=== PATIENT | male | born 1975 | race Caucasian/White ===

== ENCOUNTER 2018-06-27 15:03 | Emergency (ER) | payer MEDICAID, OTHER ==
--- NOTE | 2018-06-27 16:18 | EDPHY ---
General Time Seen by Provider: 06/27/18 16:04 Narrative: CHIEF COMPLAINT: Left thumb pain HISTORY OF PRESENT ILLNESS: Patient presents with complaints of left thumb pain. This started 2 days ago. [id number] 1st. Now severe. Located at the tip of the left thumb by the fingernail. He attempted to trim the fingernail to help. Severe pain when using the thumb. Improved at rest. Radiates into the hand. No fever. No redness or warmth. No drainage. No other associated complaints or modifying factors DOMINANT EXTREMITY: Right-hand dominant ESTABLISHED ORTHOPEDIST: None REVIEW OF SYSTEMS: Ten systems reviewed and are negative unless otherwise noted in the HPI PAST MEDICAL HISTORY: Uncomplicated PAST SURGICAL HISTORY: No surgical history SOCIAL HISTORY: Nonsmoker. No drug or alcohol use. FAMILY HISTORY: Noncontributory. EXAMINATION: General Appearance: Alert, no distress Cardiovascular: Symmetric radial pulses. Good signs of perfusion the left hand. Neurological: A&O, 2 point sensory symmetric on the thumbs, metal base blocker and interossei strength symmetric Skin: Warm and dry. There is a small, 1 cm area of suspected paronychia versus felon on the left thumb, on the radial side of the thumb nail. There is no involvement of the actual nail bed. No surrounding cellulitis or lymphangitis. Extremities: Tenderness of the left thumb at the site of the abscess. Range of motion of the hand and fingers symmetric. No evidence of compartment syndrome Psychiatric: Mood and affect normal DIFFERENTIAL DIAGNOSES: Including but not limited to felon, paronychia, abscess, fracture MDM: 4:10 p.m. Left thumb paronychia versus ingrown nail. There is no evidence of tenosynovitis, abscess, DVT or cellulitis. I have administered digital block. I will proceed with incision, drainage and excision of the nail. 4:40 p.m. Abscess on the left thumb consistent with paronychia versus felon. Tolerated well with digital block. No packing. Copiously irrigated. Dressing applied to be placed on antibiotics for empiric coverage. We discussed wound care. We discussed ED precautions. We discussed completion of antibiotic with short course of pain medication ongoing anti-inflammatories. PROCEDURE: Digital Block Indication: Thumb paronychia Consent: Verbal Location: Left thumb Anesthesia: Lidocaine 1% plain, 0.25% Marcaine plain, 5mL Description: Base of the finger was prepped. The above was infused without difficulty in a ring block fashion. Tolerated well. Good anesthesia. Complications: None PROCEDURE: Incision and Drainage Consent: Verbal Location: Left thumb Length: 1 cm Complexity: Simple Anesthesia: Digital block Procedure description: After time-out and good anesthesia, the left thumb was prepped in common sterile fashion with chlorhexidine. Using sterile technique, used a 11. Blade to make a small puncture in the area of fluctuance. I was able to express several mL of purulent fluid. Minimal blood loss. Tolerated well. Expressed: 2-3 mL of purulence fluid Wound care: Daily wound care Follow-up: Emergency department as needed SUPERVISION: This patient was independently evaluated without direct involvement of or examination by the attending physician. - History Smoking Status: Current every day smoker - Objective Vital Signs: Initial Vital Signs Temperature (C) 98.8 F 06/27/18 15:03 Heart Rate 102 H 06/27/18 15:03 Respiratory Rate 16 06/27/18 15:03 Blood Pressure 107/85 H 06/27/18 15:03 O2 Sat (%) 97 06/27/18 15:03 O2 Delivery Mode Room Air Allergies/Adverse Reactions: No Known Allergies Allergy (Verified 06/04/18 08:28) Home Medications: Medication Instructions Recorded Sulfamethox/Tmp 800/160 mg 1 tab PO BID 10 Days tab 06/27/18 [Bactrim Ds] oxyCODONE HCL/ACETAMINOPHEN 1 each PO Q4-6PRN PRN #7 tablet 06/27/18 [Percocet 5-325 mg Tablet] Medications Given: Discontinued Medications Diphtheria/Tetanus/Acell Pertussis (Boostrix) 0.5 ml IM .ONCE ONE Stop: 06/27/18 16:37 Last Admin: 06/27/18 16:41 Dose: 0.5 ml Departure - Departure Disposition: Home, Routine, Self-Care Clinical Impression: Felon of finger of left hand Condition: Good Instructions: Paronychia (ED) Additional Instructions: 1. Daily wound care as discussed. You may leave the current dressing in place for up to 48 hr 2. Antibiotics as prescribed to completion 3. Follow up with hand surgeon for definitive care as needed 4. ED precautions for worsening pain, numbness, tingling, redness of the hand or forearm, fever, difficulty bending or straightening the thumb Referrals: Sukumar Owens MD [Medical Doctor] - As per Instructions Prescriptions: oxyCODONE HCL/ACETAMINOPHEN [Percocet 5-325 mg Tablet] 1 each PO Q4-6PRN PRN #7 tablet PRN Reason: Pain, Breakthrough Sulfamethox/Tmp 800/160 mg [Bactrim Ds] 1 tab PO BID 10 Days tab
[2018-06-27] MEDS ORDERED: TDAP ADULT 0.5 ML INJ (BOOSTRIX) IM ONE (16:36)
[2018-06-27 16:53] VITALS: BP 111/67
== END 2018-06-27 16:53 | disposition home or self-care (01) ==
PROC: 0H9GXZZ Drainage of Left Hand Skin, External Approach (ICD-10-PCS; principal; 2018-06-27)
DX: L03.012 Cellulitis of left finger (principal); Z23 Encounter for immunization

== ENCOUNTER 2019-01-05 08:48 | Emergency (ER) | payer MEDICAID ==
[2019-01-05] MEDS ORDERED: NS 1,000 ML IV ONE (09:11)
--- NOTE | 2019-01-05 09:14 | EDPHY ---
General Time Seen by Provider: 01/05/19 09:01 Narrative: CLINICAL IMPRESSION: Nausea, vomiting, diarrhea, acute gastroenteritis ASSESSMENT/PLAN: 43-year-old male presents to the emergency department with nausea, vomiting, diarrhea since last night. No reports of hematemesis, bloody stools, focal abdominal pain, fever or chills. Abdomen is soft without peritoneal findings. Labs reassuring without significant electrolyte imbalance, renal insufficiency, signs of severe dehydration, metabolic disturbance or leukocytosis. Patient received 2 L IV fluid and antiemetics. He was able to tolerate oral fluids well. He continued to have some episodes of diarrhea. We discussed oral rehydration and bland diet at home. PCP follow-up recommended, warning signs return to ED sooner outlined in discharge. DIFFERENTIAL DX: Abdominal pain includes but not limited to acute appendicitis, diverticulitis, cholecystitis, pancreatitis, SBO, gastroenteritis, constipation ED PROCEDURES: See lab and/or imaging results below ED COURSE: 9:10 a.m.: Patient seen assessed by myself. Vital signs stable, afebrile. No signs of severe dehydration. Abdomen soft without focal peritoneal findings. Plan for IV, basic labs, 2 L fluid bolus and p. O. Challenge. Suspect norovirus or similar viral gastroenteritis. CHIEF COMPLAINT: Nausea, vomiting, diarrhea HPI: 43-year-old otherwise healthy male presents to the emergency department with complaints of nausea, vomiting, and diarrhea since late last evening. Patient attempted to go to work today but was feeling too weak and lethargic. He reports generalized abdominal cramping from vomiting but has no localized pain. No prior abdominal wall surgery. Prior history of kidney stones but no reported flank pain, dysuria or visible hematuria. No bloody stools. He does not drink alcohol regularly. No recent travel or antibiotics or new medications. PAST MEDICAL HISTORY: None reported See triage summary and nurse notes for addition applicable history Pertinent Past Surgical History: Past Ureteral stent for kidney stone Family History: Noncontributory Social History: Otherwise healthy, daily smoker REVIEW OF SYSTEMS: A full 10 point review of systems was negative except for those mentioned in HPI. PHYSICAL EXAM: General Appearance: Alert, oriented, appropriate, cooperative, NAD, well hydrated, non-toxic appearing, VSS, hypertensive, no hypoxia. HEENT: TMs are clear bilaterally no perforation or FB, no injection, no evidence of serous or mucopurulent otitis. Moist mucous membranes, Oropharynx clear is no erythema or exudates, no tonsillar hypertrophy or asymmetry. Dentition without abnormality. Neck: Supple, nontender, no lymphadenopathy, no midline pain, FROM, no meningismus. Respiratory: There are no retractions, lungs are clear to auscultation. Cardiac: Regular rate and rhythm, no murmurs or gallops. Gastrointestinal: Abdomen is soft, generalized mild discomfort, hyperactive bowel sounds normal, no masses/hernia, no rigidity, guarding or focal peritoneal findings. Skin: Warm, dry, no rashes, no nodules on palpation. MEDICAL DECISION MAKING: Patient was seen independently. Secondary supervising physician at time of evaluation was: Dr. Davidson . Diagnosis: Nausea vomiting and diarrhea. New, requires workup Summary: See Assessment and Plan for summary of ED visit Clinical lab tests: ordered / reviewed. Patient Progress: Improved, stable for discharge. - History Smoking Status: Heavy smoker - Objective Vital Signs: Initial Vital Signs Temperature (C) 37.1 C 01/05/19 08:53 Heart Rate 87 01/05/19 08:53 Respiratory Rate 18 01/05/19 08:53 Blood Pressure 142/92 H 01/05/19 08:53 O2 Sat (%) 96 01/05/19 08:53 O2 Delivery Mode Room Air Allergies/Adverse Reactions: No Known Allergies Allergy (Verified 01/05/19 08:55) Home Medications: Medication Instructions Recorded Sulfamethox/Tmp 800/160 mg 1 tab PO BID 10 Days tab 06/27/18 [Bactrim Ds] oxyCODONE HCL/ACETAMINOPHEN 1 each PO Q4-6PRN PRN #7 tablet 06/27/18 [Percocet 5-325 mg Tablet] Ondansetron Odt [Zofran Odt] 4 mg PO Q4PRN PRN #7 tab 01/05/19 Laboratory Results: Laboratory Results 01/05/19 09:00 01/05/19 09:00 01/05/19 01/05/19 09:00 09:00 WBC 8.54 10^3/uL 10^3/uL (3.80-9.50) RBC 5.76 10^6/uL 10^6/uL (4.40-6.38) Hgb 17.9 g/dL H g/dL (13.7-17.5) Hct 50.3 % % (40.0-51.0) MCV 87.3 fL fL (81.5-99.8) MCH 31.1 pg pg (27.9-34.1) MCHC 35.6 g/dL g/dL (32.4-36.7) RDW 12.3 % % (11.5-15.2) Plt Count 262 10^3/uL 10^3/uL (150-400) MPV 9.8 fL fL (8.7-11.7) Neut % (Auto) 83.0 % H % (39.3-74.2) Lymph % (Auto) 11.5 % L % (15.0-45.0) [place] % (Auto) 4.4 % L % (4.5-13.0) Eos % (Auto) 0.7 % % (0.6-7.6) Baso % (Auto) 0.2 % L % (0.3-1.7) Nucleat RBC Rel Count 0.0 % % (0.0-0.2) Absolute Neuts (auto) 7.08 10^3/uL H 10^3/uL (1.70-6.50) Absolute Lymphs (auto) 0.98 10^3/uL L 10^3/uL (1.00-3.00) Absolute Monos (auto) 0.38 10^3/uL 10^3/uL (0.30-0.80) Absolute Eos (auto) 0.06 10^3/uL 10^3/uL (0.03-0.40) Absolute Basos (auto) 0.02 10^3/uL 10^3/uL (0.02-0.10) Absolute Nucleated RBC 0.00 10^3/uL 10^3/uL (0-0.01) Immature Gran % 0.2 % % (0.0-1.1) Immature Gran # 0.02 10^3/uL 10^3/uL (0.00-0.10) Sodium 136 mEq/L mEq/L (135-145) Potassium 4.2 mEq/L mEq/L (3.5-5.2) Chloride 106 mEq/L mEq/L (97-110) Carbon Dioxide 21 mEq/l L mEq/l (22-31) Anion Gap 9 mEq/L mEq/L (6-14) BUN 23 mg/dL mg/dL (7-23) Creatinine 1.0 mg/dL mg/dL (0.7-1.3) Estimated GFR > 60 Glucose 132 mg/dL H mg/dL (70-100) Calcium 9.2 mg/dL mg/dL (8.5-10.4) Medications Given: Discontinued Medications Sodium Chloride (Ns) 1,000 mls @ 0 mls/hr IV EDNOW ONE; Wide Open PRN Reason: Protocol Stop: 01/05/19 09:12 Last Admin: 01/05/19 09:48 Dose: 1,000 mls Departure - Departure Disposition: Home, Routine, Self-Care Clinical Impression: Nausea vomiting and diarrhea Condition: Fair Instructions: Acute Nausea and Vomiting (ED) Additional Instructions: DISCHARGE INSTRUCTIONS FROM YOUR DOCTOR Thank you for visiting our emergency department today. You were treated by a physician production administrative assistant today and your case was reviewed with our ED Attending physician. Please keep in mind that discharge from the emergency department does not mean that there is nothing wrong - it simply means that we have not identified an emergency condition that requires further evaluation or treatment in the hospital. You should always plan to follow up with primary care for re- evaluation of your condition in the next 2-3 days. If you have been referred to a specialist, please call as soon as possible (today or tomorrow) to schedule your follow up appointment at the appropriate time. YOU APPEAR TO HAVE A VIRAL GASTROENTERITIS. LAB WORK SHOWS STABLE ELECTROLYTES , NO METABOLIC DISTURBANCE AND NO SIGNIFICANT ELEVATION IN INFECTION FIGHTING COUNT. NO CLINICAL CONCERNS FOR BACTERIAL INFECTION OR NEED FOR EMERGENT CT OR ULTRASOUND IMAGING OF THE ABDOMEN. PLEASE STAY WELL HYDRATED AT HOME. ADVANCED TO A BLAND DIET WHEN ABLE. FOLLOW UP WITH A PRIMARY CARE DOCTOR IN THE NEXT 24-48 HOURS. USE ZOFRAN IF NEEDED. RETURN TO THE EMERGENCY DEPARTMENT FOR SEVERE ABDOMINAL PAIN, DEVELOPMENT OF FEVER GREATER THAN 100.4, INABILITY TO KEEP FOOD OR LIQUID DOWN, BLOODY STOOLS, OR ANY OTHER CONCERN. People present with illnesses and injuries in different ways, and it is always possible that we have missed something. You may always return for re-evaluation if symptoms worsen or if they are not improving or if you develop new/different symptoms. Again, thank you for choosing our emergency department. We hope that you feel better. Referrals: Patient,NotPresent [Unknown] - As per Instructions Jessica Pelletier MD [Medical Doctor] - 1-2 days without fail Stand Alone Forms: Work Excuse Prescriptions: Ondansetron Odt [Zofran Odt] 4 mg PO Q4PRN PRN #7 tab PRN Reason: Nausea/Vomiting, Can'T Take Po
[2019-01-05 09:23] LABS: PLATELET COUNT 262 10^3/uL (150-400)
[2019-01-05 10:42] VITALS: BP 127/72
== END 2019-01-05 11:12 | disposition home or self-care (01) ==
LOC: EDUNIT#
DX: R11.2 Nausea with vomiting, unspecified (principal); R19.7 Diarrhea, unspecified; E86.9 Volume depletion, unspecified